=== PATIENT | female | born 1940 | race Caucasian/White ===

== ENCOUNTER 2017-03-22 11:16 | Emergency (ER) | payer OTHER ==
[2017-03-22] MEDS ORDERED: MECLIZINE HCL 25 MG TAB PO ONE (12:46)
--- NOTE | 2017-03-22 12:49 | EDPHY ---
H & P Time Seen by Provider: 03/22/17 12:31 HPI/ROS: CHIEF COMPLAINT: Woozy sensation HISTORY OF PRESENT ILLNESS: 76-year-old female with a history of severe scoliosis and restrictive lung disease presents with a woozy sensation. When she got out of bed this morning she felt very woozy. Associated with a nausea sensation. She felt slightly off balance when she went to the bathroom. Since then the feeling has improved, though she feels somewhat off balance when she is walking. No shortness of breath or chest pain. No prior similar symptoms. No recent head or neck trauma. REVIEW OF SYSTEMS: Constitutional: No fever, no chills Eyes: No visual changes ENT: No sore throat Respiratory: No cough, no shortness of breath Cardiac: No chest pain Gastrointestinal: no vomiting, no abdominal pain Genitourinary: No hematuria, no dysuria Musculoskeletal: No leg pain or swelling Skin: No rash Neurological: No headache, no numbness, no weakness Psychiatric: No depression Past Medical/Surgical History: Scoliosis Restrictive lung disease, on 4 L of oxygen by nasal cannula Social History: Lives in own home Smoking Status: Never smoked Physical Exam: General Appearance: Alert, pleasant Eyes: Pupils equal and round, no conjunctival pallor or injection, horizontal nystagmus, fast component to the left ENT, Mouth: Mucous membranes moist Neck: Normal inspection Respiratory: Lungs are clear to auscultation Cardiovascular: Regular rate and rhythm Gastrointestinal: Abdomen is soft and nontender Neurological: Alert, oriented x3, cranial nerves II through XII intact, motor 5 /5, sensory intact to light touch, normal gait Skin: Warm and dry, no rash Extremities: Nontender, no pedal edema Psychiatric: Mood and affect normal Constitutional: Initial Vital Signs Temperature (C) 36.6 C 03/22/17 11:32 Heart Rate 104 H 03/22/17 11:32 Respiratory Rate 22 H 03/22/17 11:32 Blood Pressure 147/81 H 03/22/17 11:32 O2 Sat (%) 90 L 03/22/17 11:32 O2 Delivery Mode Nasal Cannula O2 (L/minute) 4 Allergies/Adverse Reactions: codeine Allergy (Verified 03/22/17 11:31) GI Home Medications: Medication Instructions Recorded Aspirin 81mg (*) 03/22/17 CALCI-CHEW 03/22/17 Meclizine HCl [Meclizine HCl 25 mg 25 mg PO TID PRN #15 tab 03/22/17 (RX,OTC)] Medical Decision Making - Diagnostics EKG Interpretation: EKG interpreted by me reveals sinus rhythm, rate 95, prominent T-wave in V2, no ST or T segment changes. ED Course/Re-evaluation: This patient presents with vertigo. There are no concerning signs or symptoms suggestive of a central etiology for vertigo. Neurologic exam is normal. I do not feel that neuro imaging is indicated. Meclizine 25 mg orally given. Laboratory studies are normal. Patient wants to go home prior to seeing if the meclizine improved her symptoms. I feel that this is a safe plan for the patient. She is able to walk with a steady gait. Differential Diagnosis: Differential diagnosis includes TIA, stroke, intracranial hemorrhage, tumor, electrolyte abnormality and acute labyrinthitis. - Data Points Laboratory Results: Laboratory Results 03/22/17 12:45 03/22/17 12:45 Medications Given: Discontinued Medications Meclizine HCl (Meclizine Hcl) 25 mg PO EDNOW ONE Stop: 03/22/17 12:47 Last Admin: 03/22/17 13:25 Dose: 25 mg Departure - Departure Disposition: Home, Routine, Self-Care Clinical Impression: Vertigo Condition: Good Instructions: Vertigo (ED) Additional Instructions: Do not drive while the woozy feeling persists. Be careful when you stand up or change position. Return for worsening symptoms or any concerns. Referrals: Jaylon Alfonso MD [Primary Care Provider] - 2-3 days, if not improved Prescriptions: Meclizine HCl [Meclizine HCl 25 mg (RX,OTC)] 25 mg PO TID PRN #15 tab PRN Reason: Dizziness
--- NOTE | 2017-03-22 12:54 | CPEKG ---
Heart Rate: 95 RR Interval: 632 P-R Interval: 156 QRSD Interval: 70 QT Interval: 320 QTC Interval: 403 P [place]: 45 QRS [place]: 46 T Wave [place]: 56 EKG Severity - BORDERLINE ECG - EKG Impression: SINUS RHYTHM EKG Impression: TALL R WAVE IN V2, CONSIDER RVH OR PMI Electronically Signed By: Manju Rodriguez 22-Mar-2017 21:35:51
[2017-03-22 13:04] LABS: % IMMATURE GRANULYOCYTES 0.3 % (0.0-1.1); ABSOLUTE IMMATURE GRANULOCYTES 0.02 10^3/uL (0.00-0.10); ADD DIFF? NO; ADD MORPH? NO; ADD SCAN? NO; ATYPICAL LYMPHOCYTE FLAG 0 (0-99); FRAGMENT RBC FLAG 0 (0-99); HEMATOCRIT 38.9 % (38.0-47.0); HEMOGLOBIN 12.5 g/dL (12.6-16.3); LEFT SHIFT FLG 0 (0-99); LIPEMIA HEMOLYSIS FLAG 80 (0-99); MEAN CELL HEMOGLOBIN 30.1 pg (27.9-34.1); MEAN CELL HEMOGLOBIN CONCENTR. 32.1 g/dL (32.4-36.7); MEAN CELL VOLUME 93.7 fL (81.5-99.8); MEAN PLATELET VOLUME 10.9 fL (8.7-11.7); PLATELET CLUMPS FLAG 0 (0-99); PLATELET COUNT 184 10^3/uL (150-400); RED BLOOD CELL COUNT 4.15 10^6/uL (4.18-5.33); RED CELL DISTRIBUTION WIDTH 12.7 % (11.5-15.2)
[2017-03-22 13:11] LABS: POTASSIUM 4.3 mEq/L (3.5-5.2); SODIUM 140 mEq/L (134-144)
[2017-03-22 13:12] LABS: ANION GAP 13 mEq/L (8-16); CALCIUM 10.1 mg/dL (8.5-10.4); CARBON DIOXIDE 28 mEq/l (22-31); CHLORIDE 99 mEq/L (97-110); CREATININE 0.5 mg/dL (0.6-1.0); GLOMERULAR FILTRATION RATE > 60; GLUCOSE 96 mg/dL (70-100)
[2017-03-22 13:45] VITALS: BP 135/84; PULSE 99; RESP 18; TEMP 98.1; O2SAT 96
== END 2017-03-22 13:45 | disposition home or self-care (01) ==
DX: R42 Dizziness and giddiness (principal); Z79.82 Long term (current) use of aspirin

== ENCOUNTER → 2017-06-25 | Outpatient (CLI) | payer OTHER | LOC: FIMAGING 11:49 | PROVIDERS: ATTEND Internal Medicine | DX: Z12.31 Encounter for screening mammogram for malignant neoplasm of breast (principal) | CPT/HCPCS: G0202 ==

== ENCOUNTER → 2017-10-11 | Outpatient (CLI) | payer OTHER | LOC: FIMAGING 12:11 | PROVIDERS: ATTEND Internal Medicine Rheumatology | DX: Z13.820 Encounter for screening for osteoporosis (principal); M81.0 Age-related osteoporosis without current pathological fracture; Z79.01 Long term (current) use of anticoagulants ==

== ENCOUNTER → 2017-12-01 | Outpatient (CLI) | payer OTHER | LOC: BMCIMAGING 10:54 | PROVIDERS: ATTEND Internal Medicine | DX: M88.89 Osteitis deformans of multiple sites (principal) ==

== ENCOUNTER → 2017-12-16 | Outpatient (CLI) | payer OTHER | LOC: FIMAGING 14:01 | PROVIDERS: ATTEND Internal Medicine | DX: K76.9 Liver disease, unspecified (principal); K57.90 Diverticulosis of intestine, part unspecified, without perforation or abscess without bleeding; K59.00 Constipation, unspecified; M81.0 Age-related osteoporosis without current pathological fracture ==

== ENCOUNTER → 2018-01-12 | Outpatient (CLI) | payer OTHER | LOC: FIMAGING 10:06 | PROVIDERS: ATTEND Internal Medicine | DX: K76.9 Liver disease, unspecified (principal) ==

== ENCOUNTER → 2018-01-18 | Outpatient (CLI) | payer OTHER ==
[~2018-01-18] MED LIST: GADOBUTROL 10 ML VIAL IVP ONE
== END ==
LOC: FIMAGING 07:47
PROVIDERS: ATTEND Internal Medicine
DX: K76.9 Liver disease, unspecified (principal)
CPT/HCPCS: 74183; A9585

== ENCOUNTER 2018-01-27 08:38 | Outpatient (CLI) | payer OTHER ==
[2018-01-27] MEDS ORDERED: HEPARIN 10,000 UNIT/10 ML MDV (1,000 UNIT/ML) IVP PRN (08:54)
[2018-01-27] MEDS ORDERED: PROTAMINE SULFATE 50 MG/5 ML VIAL IVP PRN (08:54)
[2018-01-27] MEDS ORDERED: fentaNYL 100 MCG/2 ML INJ IVP PRN (08:54)
[2018-01-27] MEDS ORDERED: GLUCAGON HCL 1 MG VIAL IVP PRN (08:54)
[2018-01-27] MEDS ORDERED: MEPERIDINE 25 MG/ML SYR IVP PRN (08:54)
[2018-01-27] MEDS ORDERED: MIDAZOLAM 2 MG/2 ML VIAL IVP PRN (08:54)
[2018-01-27] MEDS ORDERED: ALTEPLASE 2 MG VIAL IVP PRN (08:54)
[2018-01-27] MEDS ORDERED: NALOXONE HCL 0.4 MG/ML INJ IVP PRN (08:54)
[2018-01-27] MEDS ORDERED: FLUMAZENIL 0.5 MG/5 ML MDV IVP PRN (08:54)
[2018-01-27] MEDS ORDERED: NS 1,000 ML IV SCH (09:00)
[2018-01-27 09:39] LABS: INR 0.9 (0.83-1.16); PROTIME(PATIENT) 12.4 SEC (12.0-15.0)
[2018-01-27] MEDS ORDERED: LIDOCAINE 1% 300 MG/30 ML SDV ONE (09:40)
--- NOTE | 2018-01-27 10:49 | PDGENHP ---
History & Physical Chief Complaint: Indeterminant liver lesion History of Present Illness: Indeterminant liver lesion Pertinent Past, Social, Family History: Dyspnea on BIPAP Cardiorespiratory Assessment: Dimished breath sounds. Min crackles Right base. RRR. S1S2.
--- NOTE | 2018-01-27 10:49 | PDPROPOC ---
Sedation Plan of Care Sedation Plan of Care: vital signs stable, mental status noted, patient educated of risks, benefits, alternatives, patient can tolerate sedation ASA Classification: ASA 2 Planned drugs: fentanyl, midazolam Mallampati Score: Class 2 Mallampati Reference Image: Patient passed 3-3-2 rule?: Yes (Will attempt with Fentanyl only)
[2018-01-27] MEDS ORDERED: ONDANSETRON 4 MG/2 ML VIAL IVP PRN (12:07)
[2018-01-27] MEDS ORDERED: ACETAMINOPHEN 500 MG TAB PO PRN (12:16)
--- NOTE | 2018-01-27 12:20 | PDRADPN ---
Radiology Procedure Note Date of Procedure: 01/27/18 Radiologist: Roosevelt Corcoran Consumer Educator(s): Fatuma Orozco US tech Anesthesia: IV Sedation (Fentanyl only) Pre-op Diagnosis: Indeterminant liver lesion Post-op Diagnosis: Indeterminant liver lesion Indication: Indeterminant liver lesion Procedure: US guided biopsy Rt lobe of liver Finding(s): Round echogenic lesion RT lobe of liver Inf/Abcess present in the surg proc area at time of surgery?: No Depth: Organ Space (Liver, RT lobe) EBL: Minimal Complications: No immediate complication Drains: Other (None)
[2018-01-27 14:42] VITALS: BP 110/70
== END 2018-01-27 15:15 | disposition home or self-care (01) ==
LOC: FIMAGING 08:38
PROVIDERS: ATTEND Internal Medicine Hematology & Oncology
PROC: 0FB03ZX Excision of Liver, Percutaneous Approach, Diagnostic (ICD-10-PCS; principal; 2018-01-27 12:09)
DX: D13.4 Benign neoplasm of liver (principal); K76.0 Fatty (change of) liver, not elsewhere classified
CPT/HCPCS: 47000; 76942; 88313; 99152; 99153; J3010; J2250; J2310

== ENCOUNTER → 2018-06-26 | Outpatient (CLI) | payer OTHER | LOC: BMCIMAGING 13:14 | PROVIDERS: ATTEND Internal Medicine | DX: Z12.31 Encounter for screening mammogram for malignant neoplasm of breast (principal) ==

== ENCOUNTER → 2018-07-10 | Outpatient (CLI) | payer OTHER ==
[~2018-07-10] MED LIST changes: -GADOBUTROL 10 ML VIAL IVP ONE; +IOPAMIDOL (ISOVUE 370) 100 ML BTL IV ONE
== END ==
LOC: FIMAGING 11:41
PROVIDERS: ATTEND Internal Medicine Pulmonary Disease
DX: R06.02 Shortness of breath (principal); M41.9 Scoliosis, unspecified
CPT/HCPCS: 71275; Q9967

== ENCOUNTER → 2018-07-28 | Outpatient (CLI) | payer OTHER | LOC: FIMAGING 09:44 | PROVIDERS: ATTEND Internal Medicine Hematology & Oncology | DX: R16.0 Hepatomegaly, not elsewhere classified (principal) ==

== ENCOUNTER → 2019-01-25 | Outpatient (CLI) | payer OTHER | LOC: FIMAGING 08:49 | PROVIDERS: ATTEND Internal Medicine Hematology & Oncology | DX: K76.9 Liver disease, unspecified (principal) ==